=== PATIENT | male | born 1960 | race Caucasian/White ===

== ENCOUNTER 2022-06-03 09:11 | Day surgery (SDC) | payer BC, SELFPAY ==
[2022-06-03] MEDS: Tropicam./Phenyleph. (1/2.5%) 5 ML BTL OS ×3 (10:02→10:17)
[2022-06-03 10:10] VITALS: BP 144/98; PULSE 79; RESP 16; TEMP 36.4; O2SAT 97
--- NOTE | 2022-06-03 10:41 | W.ANESPRE ---
General Info Date of Service Date Performed: 06/03/22 Height: 5 ft 11 in Weight: 123 kg Body Mass Index (BMI): 37.8 Surgical Procedure: Operation Date: 06/03/22 11:25 Proposed Procedure Side Surgeon p Cataract Extraction with IOL Implant Left Claudio Cleveland MD Meds Allergies and Home Medications Allergies Allergy/AdvReac Type Severity Reaction Status Date / Time bee venom protein (honey bee) Allergy Intermediate Hives Verified 06/03/22 10:07 Home Medication Medication Instructions Recorded escitalopram oxalate 20 mg tablet 20 mg PO DAILY 05/30/22 hydrochlorothiazide 12.5 mg tablet 12.5 mg PO DAILY 05/30/22 lisinopril 20 mg tablet 20 mg PO DAILY 05/30/22 metformin 500 mg tablet 500 mg PO BID 05/30/22 Current Visit Medications: Current Medications Generic Name Dose Route Start Last Admin Trade Name Freq PRN Reason Stop Dose Admin Acetaminophen 1,000 mg 06/03/22 06:00 Acetaminophen 500 Mg Tab PO Q4H PRN PRN Miscellaneous Medication 0 ml 06/03/22 06:00 Prednisolone 1%, Moxifloxacin 0.5%, Nepafenac 0.1% 5ml Btl OS DIRECTED CHANA Miscellaneous Medication 0 ml 06/03/22 06:00 06/03/22 10:17 Tropicam./Phenyleph. (1/2.5%) 5 Ml Btl OS 1 drp DIRECTED CHANA Administration Tetracaine HCl 0 ml 06/03/22 06:00 Tetracaine 0.5% 4 Ml Btl OS DIRECTED CHANA PFSH Active Problems Active Problems: Problem Status Onset Code Nuclear sclerotic cataract of left eye H25.12 Cortical cataract of left eye H26.9 Posterior subcapsular age-related cataract of left eye H25.042 Medical History Medical History Depression Diabetes mellitus Hypertension Left sided sciatica Low back pain OTTO (obstructive sleep apnea) Surgical History Surgical History (Updated 06/03/22 @ 10:16 by Phyllis Covarrubias RN) H/O removal of cyst S/P hip replacement L Tobacco Smoking/Tobacco Use Status: Never Alcohol Alcohol Intake: never Substance Use Substance use type: does not use Vital Signs and Lab Results Vital Signs Most Recent Vital Signs in EMR: Most Recent Vital Signs Temp Pulse Resp BP Pulse Ox 36.4 C L 79 16 144/98 H 97 06/03/22 10:10 06/03/22 10:10 06/03/22 10:10 06/03/22 10:10 06/03/22 10:10 Point of Care Results Point of Care Results: Finger Stick Blood Glucose 134 06/03/22 10:20 Lab Results Blood Type / Crossmatch: No Data to Display Complete Blood Count: No Data to Display Complete Metabolic Panel: No Data to Display Liver Function Panel: No Data to Display Coagulation Panel: No Data to Display Cardiac Panel: No Data to Display Arterial Blood Gas: No Data to Display Venous Blood Gas: No Data to Display Pancreas Panel: No Data to Display Thyroid Panel: No Data to Display Infectious Disease: No Data to Display Blood Cultures: No Data to Display Toxicology Panel: No Data to Display Anesthesia Assessment and Plan Anesthesia History Personal History: No History of Anesthesia Complications Family History: No Family History of Anesthesia Complications Exercise Tolerance Exercise Tolerance: Metabolic Equivalents>4 Pertinent Negatives Pertinent Negatives: No Symptoms of GERD, No Major Cardiovascular Symptoms or Complaints and No Major Pulmonary Symptoms or Complaints Cardiac & Pulmonary Exam Cardiac Exam: Normal S1/S2 Heart Sounds Pulmonary Exam: Clear Bilateral Breath Sounds Implantable Cardiac Device Does patient have a Pacemaker or an ICD?: No Airway Exam Known Difficult Airway: No Mallampati Class: 2 Mouth Opening: Normal (> 3cm) Thyromental Distance: Greater than 3 cm Neck Range of Motion: Full ROM Neck Circumference: Thick Teeth Condition: Normal Dentition Airway Comments: CPAP nightly ASA Classification ASA Score: ASA 2 Emergency Case?: No NPO Status NPO Status: NPO Clears >2 hours, Solids >8 hours Anesthesia Plan Resuscitation Status: Full Code Anesthesia Technique: MAC Anesthesia Airway Planned: Natural Airway Monitors Used: Standard Monitors Preoperative Comments:: Plan for local.
[2022-06-03 11:08] VITALS: BMI 37.8
[2022-06-03] MEDS: Balanced Salt Soln.-PLUS 500 ML BAG (11:42)
[2022-06-03] MEDS: Tetracaine 0.5% 4 ML BTL OS (11:42)
[2022-06-03] MEDS: Duovisc Viscoelastic System EACH 1 EACH (11:44)
[2022-06-03] MEDS: Lidocaine 1% Pres-Free 5 ML VIAL (11:45)
[2022-06-03] MEDS: Lidocaine 2% Jelly 6 ML SYR (11:46)
[2022-06-03] MEDS: Povidone-Iodine Ophth 30 ML BTL (11:48)
--- NOTE | 2022-06-03 11:56 | W.PM.DSUDISC ---
Date of service: 06/03/22 Time of Service: 11:56 Discharge Plan Disposition Patient Disposition: Home Discharge Details Attending Provider: Claudio Cleveland Primary Care Provider: Haley Garcia Home Meds and New Rx's Prescriptions: No Action lisinopril 20 mg Tablet 20 mg PO DAILY hydrochlorothiazide 12.5 mg Tablet 12.5 mg PO DAILY metformin 500 mg Tablet 500 mg PO BID escitalopram oxalate 20 mg Tablet 20 mg PO DAILY Discharge Instructions Stand Alone Forms: Post-op Topical Cataract, Margo Gutierrez (DSU) Discharge Orders Discharge Orders: Discharge Order (Routine); Ordered 06/03/22 Ordered By: Claudio Cleveland DS: Diagnosis Discharge Diagnosis (1) Nuclear sclerotic cataract of left eye: Status: Resolved (2) Cortical cataract of left eye: Status: Resolved (3) Posterior subcapsular age-related cataract of left eye: Status: Resolved
[2022-06-03 11:57] VITALS: BP 135/90; PULSE 74; RESP 16; TEMP 36.3; O2SAT 96
--- NOTE | 2022-06-03 11:57 | ROE_ITS ---
Date of service: 06/03/22 Time of Service: 11:57 Operative Note Operative Note DATE OF PROCEDURE: 06/03/22 PRE-OP DIAGNOSIS: Nuclear/cortical/posterior subcapsular cataract, left eye POST-OP DIAGNOSIS: same PROCEDURE: Cataract extraction using phacoemulsification with intraocular lens implant, left eye SURGEON: Claudio Cleveland ANESTHESIA TYPE: Local By Surgeon and MAC Refer to Anesthesia Record PATHOLOGY: none sent COMPLICATIONS: None Patient was transported to: same day Patient's condition: stable Implants: Abilio and Abilio / [employer] Tecnis [id number] Indications: Progressive decreased vision due to cataract, left eye Procedure Description: CATARACT SURGERY OPERATIVE REPORT PREOPERATIVE DIAGNOSIS: 1. Nuclear/cortical/posterior subcapsular cataract, left eye POSTOPERATIVE DIAGNOSIS: Same OPERATION: 1. Cataract extraction using phacoemulsification with posterior chamber intraocular lens implant, left eye. IOL: IOL Director Funeral/Model: Abilio & Abilio / MELA Tecnis [id number] IOL Power: + 30.0 diopters IOL Serial Number: [id number] Optic Diameter: 6.0 mm Haptic/Overall Diameter: 13.0 mm PHACO INFO: Kwaku TUKZ Undergarmentsurion Vision System with OZil and Active Fluidics Cumulative Dispersed Energy (CDE): 4.53 seconds SURGEON: Claudio Cleveland MD, GERSON ANESTHESIA: Monitored A [facility] (MAC), with local sub-tenon's anesthetic infiltration COMPLICATIONS: None SPECIMENS: None INDICATIONS FOR PROCEDURE: The patient is a 61-year-old gentleman with history of high hyperopia who has developed a symptomatic nuclear/cortical/posterior subcapsular cataract in the left eye. The option of cataract surgery was offered to the patient and he wished to proceed. PROCEDURE: The correct surgical eye was identified and marked as the left eye and the pupil was dilated in the preoperative area using mydriatics and cycloplegics. The dilated pupil size was 6.5 mm. The patient elected to proceed without oral sedation. The patient was brought to the operating room where cardiopulmonary monitoring was instituted and surgical time-out was performed, confirming the correct operative eye and IOL power. Topical anesthesia was administered and ophthalmic povidone-iodine 5% was inst illed into the conjunctival fornices. Lidocaine gel was applied to the cornea and the kolby-ocular area was prepped with Betadine 10% solution and draped in the usual sterile fashion for intraocular surgery, including an aperture drape. A Tegaderm transparent film dressing was cut in half and used to cover the lashes and lid margins. Care was taken to sequester the lashes and lid margins under the Tegaderm dressing. A lid speculum was placed between the lids of the operative eye and the Kwaku LuxOR Revalia operating microscope was maneuvered into position. Elvis scissors were then used to make a conjunctival buttonhole approximately 6mm posterior to the limbus in the inferonasal quadrant. Blunt dissection was carried out to expose bare sclera, and a blunt-tipped sub-tenon?s anesthesia cannula was introduced and passed posteriorly along the globe where non- preserved plain lidocaine was injected into posterior sub-Tenon?s space. A sideport knife was used to make a paracentesis port superiorly/superiortemporally. Intraocular phenylephrine/lidocaine was injected int the anterior chamber.. The anterior chamber was filled with viscoelastic. A keratome knife was used to construct a 2-plane near-clear corneal tunnel extending 2.0mm into clear cornea temporally. A flap was raised on the anterior capsule and capsulorhexis forceps were used to complete a continuous curvilinear capsulorhexis of 5.5 mm. The capsule was noted to be quite thin. Balanced salt solution was then used to perform cortical cleaving hydrodissection and nuclear hydrodelineation until the lens could be freely rotated within the capsular bag. The lens nucleus was then disassembled and removed within the capsular bag and iris plane using phacoemulsification. Residual cortical material was removed using the 45-degree angled silicone I/A tip with 0.3mm port. The posterior capsule was carefully polished to remove as much residual lens epithelial cells as safely possible. The capsular bag was the n inflated and the anterior chamber deepened with viscoelastic. The lens implant described above was inserted into the capsular bag using the MELA [place] Injector. A Kuglen hook was used to dial the IOL into position. Residual viscoelastic was then removed first from posterior to the IOL, then from the anterior chamber using the I/A handpiece. The lens implant was noted to center nicely within the capsular bag. The incisions were stromally hydrated, and the anterior chamber was reformed using BSS. Then 0.5cc of moxifloxacin 1.0mg/ml were injected into the capsular bag and anterior chamber. The incisions were checked with a Weck spear and found to be secure. Several drops of ophthalmic povidone-iodine 5% were then applied to the eye followed by two drops of Imprimis combination prednisolone/moxifloxacin/nepafenac solution. The drapes were removed and a clear plastic protective eye shield was placed over the eye. The patient was then returned to Same Day Surgery in stable cond ition.
--- NOTE | 2022-06-03 13:18 | W.ANESPOSTOP ---
Postoperative Evaluation Date, Time and Location Date Performed: 06/03/22 Time Performed: 12:10 Patient Location: Day Surgery Unit Vital Signs Most Recent Imported Vital Signs: Most Recent Vital Signs Temp Pulse Resp BP Pulse Ox 36.3 C L 74 16 135/90 96 06/03/22 11:57 06/03/22 11:57 06/03/22 11:57 06/03/22 11:57 06/03/22 11:57 Pain Score Most Recent Pain Score: Most Recent Pain Score Pain Level 0 06/03/22 11:57 Assessment Mental Status: Awake (Alert & Oriented to Patient Baseline) Airway and Respiratory Function: Patent airway with normal (patient baseline) respiratory exam Cardiovascular Function: Hemodynamically Stable Hydration Status: Adequately Hydrated Nausea & Vomiting: No Nausea or Vomiting Pain: Pt. Denies Any Pain Peripheral Nerve Block: Patient did not receive a nerve block
== END 2022-06-03 12:12 | disposition home or self-care (01) ==
LOC: SUR 09:13
PROVIDERS: PCP Nurse Practitioner Family; Visit Provider Ophthalmology
PROC: (CPT 66984; principal; 2022-06-03 11:15)
DX: H25.12 Age-related nuclear cataract, left eye (principal); E11.9 Type 2 diabetes mellitus without complications
CPT/HCPCS: 66984; V2632

== ENCOUNTER 2022-06-17 10:22 | Day surgery (SDC) | payer BC, SELFPAY ==
--- NOTE | 2022-06-17 07:29 | W.PREOPHP ---
Assessment and Plan Assessment and plan (1) Cortical cataract of right eye: Status: Acute Assessment and plan: Assessment: Visually significant cataract of the right eye. Plan: Cataract extraction with lens implantation of the right eye. (2) Nuclear sclerotic cataract of right eye: Status: Acute Assessment and plan: Assessment: Visually significant cataract of the right eye. Plan: Cataract extraction with lens implantation of the right eye. (3) Posterior subcapsular age-related cataract, right eye: Status: Acute Assessment and plan: Assessment: Visually significant cataract of the right eye. Plan: Cataract extraction with lens implantation of the right eye. History of Present Illness History of Present Illness Chief Complaint: Progressive decreased vision, right eye Narrative: The patient is a 60-year-old gentleman with history of high hyperopia with short axial length who developed visually significant bilateral cortical/nuclear/posterior subcapsular cataracts in both eyes. He was significantly symptomatic and he desired cataract surgery and attempt to improve and maximize his vision. He has already undergone cataract surgery in the left eye on 06/03/2022 and is doing well postoperatively. He now presents for cataract surgery in the right eye. Review of Systems All systems reviewed & are unremarkable except as noted in HPI and below PFSH All Active Problems (Updated 06/17/22 @ 11:31 by Claudio Cleveland MD) Posterior subcapsular age-related cataract, right eye (Acute) Nuclear sclerotic cataract of right eye (Acute) Cortical cataract of right eye (Acute) Medical History Depression Diabetes mellitus Hypertension Left sided sciatica Low back pain OTTO (obstructive sleep apnea) Surgical History H/O removal of cyst S/P hip replacement L Social History Smoking/Tobacco Use Status: Never Smoking risk assessment performed?: Yes Alcohol Intake: never Substance use type: does not use Do you feel safe at home: Yes Do you feel safe in your relationship?: Yes Meds Allergies and Home Medications Allergies Allergy/AdvReac Type Severity Reaction Status Date / Time bee venom protein (honey bee) Allergy Intermediate Hives Verified 06/17/22 11:01 Home Medications Medication Instructions Recorded Confirmed Type escitalopram oxalate 20 mg tablet 20 mg PO DAILY 05/30/22 06/17/22 History hydrochlorothiazide 12.5 mg tablet 12.5 mg PO DAILY 05/30/22 06/17/22 History lisinopril 20 mg tablet 20 mg PO DAILY 05/30/22 06/17/22 History metformin 500 mg tablet 500 mg PO BID 05/30/22 06/17/22 History Exam Eyes Other: Most recent ocular examination shows corrected visual acuity of 20/30 in the right eye with high hyperopic correction of over +6.0 diopters. Visual acuity measures 28 2039 uncorrected in the left eye, pinhole into 2024. Left eye shows a well-positioned PCIOL with clear posterior capsule. In the right eye there is mild nuclear and cortical cataract with a moderate posterior subcapsular cataract. Funduscopic examination reveals disc cupping of 0.1 OU with normal vessels, macula, peripheral retina and vitreous. Resp Auscultation: clear to auscultation bilaterally Cardio Rate: regular rate Rhythm: regular rhythm
[2022-06-17 10:48] VITALS: BP 139/97; PULSE 81; RESP 16; TEMP 36; O2SAT 96
[2022-06-17] MEDS: Tropicam./Phenyleph. (1/2.5%) 5 ML BTL OD ×3 (11:03→11:15)
--- NOTE | 2022-06-17 11:21 | W.ANESPRE ---
General Info Date of Service Date Performed: 06/17/22 Height: 5 ft 11 in Weight: 123.3 kg Body Mass Index (BMI): 37.9 Surgical Procedure: Operation Date: 06/17/22 12:10 Proposed Procedure Side Surgeon p Cataract Extraction with IOL Implant Right Claudio Cleveland MD Meds Allergies and Home Medications Allergies Allergy/AdvReac Type Severity Reaction Status Date / Time bee venom protein (honey bee) Allergy Intermediate Hives Verified 06/17/22 11:01 Home Medication Medication Instructions Recorded escitalopram oxalate 20 mg tablet 20 mg PO DAILY 05/30/22 hydrochlorothiazide 12.5 mg tablet 12.5 mg PO DAILY 05/30/22 lisinopril 20 mg tablet 20 mg PO DAILY 05/30/22 metformin 500 mg tablet 500 mg PO BID 05/30/22 Current Visit Medications: Current Medications Generic Name Dose Route Start Last Admin Trade Name Freq PRN Reason Stop Dose Admin Acetaminophen 1,000 mg 06/17/22 06:00 Acetaminophen 500 Mg Tab PO Q4H PRN PRN Miscellaneous Medication 0 ml 06/17/22 06:00 Prednisolone 1%, Moxifloxacin 0.5%, Nepafenac 0.1% 5ml Btl OD DIRECTED CHANA Miscellaneous Medication 0 ml 06/17/22 06:00 06/17/22 11:15 Tropicam./Phenyleph. (1/2.5%) 5 Ml Btl OD 1 drp DIRECTED CHANA Administration Tetracaine HCl 0 ml 06/17/22 06:00 Tetracaine 0.5% 4 Ml Btl OD DIRECTED CHANA PFSH Active Problems Active Problems: Problem Status Onset Code Nuclear sclerotic cataract of left eye H25.12 Cortical cataract of left eye H26.9 Posterior subcapsular age-related cataract of left eye H25.042 Medical History Medical History Depression Diabetes mellitus Hypertension Left sided sciatica Low back pain OTTO (obstructive sleep apnea) Surgical History Surgical History H/O removal of cyst S/P hip replacement L Tobacco Smoking/Tobacco Use Status: Never Alcohol Alcohol Intake: never Substance Use Substance use type: does not use Vital Signs and Lab Results Vital Signs Most Recent Vital Signs in EMR: Most Recent Vital Signs Temp Pulse Resp BP Pulse Ox 36 C L 81 16 139/97 H 96 06/17/22 10:48 06/17/22 10:48 06/17/22 10:48 06/17/22 10:48 06/17/22 10:48 Lab Results Blood Type / Crossmatch: No Data to Display Complete Blood Count: No Data to Display Complete Metabolic Panel: No Data to Display Liver Function Panel: No Data to Display Coagulation Panel: No Data to Display Cardiac Panel: No Data to Display Arterial Blood Gas: No Data to Display Venous Blood Gas: No Data to Display Pancreas Panel: No Data to Display Thyroid Panel: No Data to Display Infectious Disease: No Data to Display Blood Cultures: No Data to Display Toxicology Panel: No Data to Display Anesthesia Assessment and Plan Anesthesia History Personal History: No History of Anesthesia Complications Family History: No Family History of Anesthesia Complications Exercise Tolerance Exercise Tolerance: Metabolic Equivalents>4 Pertinent Negatives Pertinent Negatives: No Symptoms of GERD Cardiac & Pulmonary Exam Cardiac Exam: Normal S1/S2 Heart Sounds Pulmonary Exam: Clear Bilateral Breath Sounds Implantable Cardiac Device Does patient have a Pacemaker or an ICD?: No Airway Exam Known Difficult Airway: No Mallampati Class: 2 Mouth Opening: Normal (> 3cm) Thyromental Distance: Greater than 3 cm Neck Range of Motion: Full ROM Neck Circumference: Thick Teeth Condition: Normal Dentition Airway Comments: CPAP nightly ASA Classification ASA Score: ASA 2 Emergency Case?: No NPO Status NPO Status: NPO Clears >2 hours, Solids >8 hours Anesthesia Plan Resuscitation Status: Full Code Anesthesia Technique: MAC Anesthesia Airway Planned: Natural Airway Monitors Used: Standard Monitors
[2022-06-17] MEDS: Tetracaine 0.5% 4 ML BTL OD (12:32)
[2022-06-17] MEDS: Lidocaine 1% Pres-Free 5 ML VIAL (12:32)
[2022-06-17] MEDS: Lidocaine 2% Jelly 6 ML SYR (12:33)
[2022-06-17] MEDS: Duovisc Viscoelastic System EACH 1 EACH (12:33)
[2022-06-17] MEDS: Balanced Salt Soln.-PLUS 500 ML BAG (12:33)
[2022-06-17] MEDS: Povidone-Iodine Ophth 30 ML BTL (12:34)
[2022-06-17 12:48] VITALS: BMI 37.9
[2022-06-17 12:56] VITALS: BP 134/90; PULSE 78; RESP 16; TEMP 36.9; O2SAT 96
--- NOTE | 2022-06-17 12:58 | W.PM.DSUDISC ---
Date of service: 06/17/22 Time of Service: 12:58 Discharge Plan Disposition Patient Disposition: Home Discharge Details Attending Provider: Claudio Cleveland Primary Care Provider: Haley Garcia Home Meds and New Rx's Prescriptions: No Action lisinopril 20 mg Tablet 20 mg PO DAILY hydrochlorothiazide 12.5 mg Tablet 12.5 mg PO DAILY metformin 500 mg Tablet 500 mg PO BID escitalopram oxalate 20 mg Tablet 20 mg PO DAILY Discharge Instructions Stand Alone Forms: Post-op Topical Cataract, Margo Gutierrez (DSU) Discharge Orders Discharge Orders: Discharge Order (Routine); Ordered 06/17/22 Ordered By: Claudio Cleveland DS: Diagnosis Discharge Diagnosis (1) Cortical cataract of right eye: Status: Resolved (2) Nuclear sclerotic cataract of right eye: Status: Resolved (3) Posterior subcapsular age-related cataract, right eye: Status: Resolved
--- NOTE | 2022-06-17 12:59 | ROE_ITS ---
Date of service: 06/17/22 Time of Service: 12:59 Operative Note Operative Note DATE OF PROCEDURE: 06/17/22 PRE-OP DIAGNOSIS: Nuclear/cortical/posterior subcapsular cataract, right eye POST-OP DIAGNOSIS: same PROCEDURE: Cataract extraction using phacoemulsification with intraocular lens implant, right eye SURGEON: Claudio Cleveland ANESTHESIA TYPE: Local By Surgeon and MAC Refer to Anesthesia Record ESTIMATED BLOOD LOSS: 0 PATHOLOGY: none sent COMPLICATIONS: None Patient was transported to: same day Patient's condition: stable Implants: Abilio & Abilio/MELA Tecnis [id number] Indications: Progressive visual loss due to cataract, right eye Procedure Description: CATARACT SURGERY OPERATIVE REPORT PREOPERATIVE DIAGNOSIS: 1. Nuclear/cortical/posterior subcapsular cataract, right eye POSTOPERATIVE DIAGNOSIS: Same OPERATION: 1. Cataract extraction using phacoemulsification with posterior chamber intraocular lens implant, right eye. IOL: IOL [employer] Assembler/Model: Abilio & Abilio / MELA Tecnis [id number] IOL Power: + 29.5 diopters IOL Serial Number: [id number] Optic Diameter: 6.0mm Haptic/Overall Diameter: 13.0mm PHACO INFO: Kwaku [employer]urion Vision System with OZil and Active Fluidics Cumulative Dispersed Energy (CDE): 5.86 seconds SURGEON: Claudio Cleveland MD, GERSON ANESTHESIA: Monitored Anesthesia Care (MAC), with local sub-tenon's anesthetic infiltration COMPLICATIONS: None SPECIMENS: None INDICATIONS FOR PROCEDURE: The patient is a 61-year-old gentleman with history of high hyperopia who has developed symptomatic bilateral nuclear/cortical/posterior subcapsular cataract. He has already undergone cataract surgery in the left eye and is doing well postoperatively. He now presents for cataract surgery in the right eye. PROCEDURE: The correct surgical eye was identified and marked as the right eye and the pupil was dilated in the preoperative area using mydriatics and cycloplegics. The dilated pupil size was 7.0 mm. The patient elected to proceed without oral sedation. The patient was brought to the operating room where cardiopulmonary monitoring was instituted and surgical time-out was performed, confirming the correct operative eye and IOL power. Topical anesthesia was administered and ophthalmic povidone-iodine 5% was instilled into the conjunctival fornices. Lidocaine gel was applied to the cornea and the kolby-ocular area was prepped with Betadine 10% solution and draped in the usual sterile fashion for intraocular surgery, including an aperture drape. A Tegaderm transparent film dressing was cut in half and used to cover the lashes and lid margins. Care was taken to sequester the lashes and lid margins under the Tegaderm dressing. A lid speculum was placed between the lids of the operative eye and the Kwaku LuxOR [place] operating microscope was maneuvered into position. Elvis scissors were then used to make a conjunctival buttonhole approximately 6mm posterior to the limbus in the inferonasal quadrant. Blunt dissection was carried out to expose bare sclera, and a blunt-tipped sub-tenon?s anesthesia cannula was introduced and passed posteriorly along the globe where non- preserved plain lidocaine was injected into posterior sub-Tenon?s space. A sideport knife was used to make a paracentesis port inferotemporally. Intraocular phenylephrine/lidocaine was injected into the anterior chamber. The anterior chamber was filled with viscoelastic. A keratome knife was used to construct a 2-plane near-clear corneal tunnel extending 2.0mm into clear cornea superiortemporally. A flap was raised on the anterior capsule and capsulorhexis forceps were used to complete a continuous curvilinear capsulorhexis of 5.5 mm. Balanced salt solution was then used to perform cortical cleaving hydrodissection and nuclear hydrodelineation until the lens could be freely rotated within the capsular bag. The lens nucleus was then disassembled and removed within the capsular bag and iris plane using phacoemulsification. Residual cortical material was removed using the I/A handpiece. The posterior capsule was carefully polished to remove as much residual lens epithelial cells as safely possible. The capsular bag was then inflated and the anterior chamber deepened with viscoelastic. The lens implant described above was inserted into the capsular bag using the MELA [place] Injector. A Kuglen hook was used to dial the IOL into position. Residual viscoelastic was then removed first from posterior to the IOL, then from the anterior chamber using the I/A handpiece. The lens implant was noted to center nicely within the capsular bag. The incisions were stromally hydrated, and the anterior chamber was reformed using BSS. Then 0.5cc of moxifloxacin 1.0mg/ml were injected into the capsular bag and anterior chamber. The incisions were checked with a Weck spear and found to be secure. Several drops of ophthalmic povidone-iodine 5% were then applied to the eye followed by two drops of Imprimis combination prednisolone/moxifloxacin/nepafenac solution. The drapes were removed and a clear plastic protective eye shield was placed over the eye. The patient was then returned to Same Day Surgery in stable condition.
--- NOTE | 2022-06-17 13:11 | W.ANESPOSTOP ---
Postoperative Evaluation Date, Time and Location Date Performed: 06/17/22 Time Performed: 12:56 Patient Location: Day Surgery Unit Vital Signs Most Recent Imported Vital Signs: Most Recent Vital Signs Temp Pulse Resp BP Pulse Ox 36.9 C 78 16 134/90 96 06/17/22 12:56 06/17/22 12:56 06/17/22 12:56 06/17/22 12:56 06/17/22 12:56 Pain Score Most Recent Pain Score: Most Recent Pain Score Pain Level 0 06/17/22 12:56 Assessment Mental Status: Awake (Alert & Oriented to Patient Baseline) Airway and Respiratory Function: Patent airway with normal (patient baseline) respiratory exam Cardiovascular Function: Hemodynamically Stable Hydration Status: Adequately Hydrated Nausea & Vomiting: No Nausea or Vomiting Pain: Pt. Denies Any Pain Peripheral Nerve Block: Other (Local by Dr. Cleveland)
== END 2022-06-17 13:19 | disposition home or self-care (01) ==
LOC: SUR 10:22
PROVIDERS: PCP Nurse Practitioner Family; Visit Provider Ophthalmology
PROC: (CPT 66984; principal; 2022-06-17 12:00)
DX: H25.041 Posterior subcapsular polar age-related cataract, right eye (principal); E11.9 Type 2 diabetes mellitus without complications; I10 Essential (primary) hypertension
CPT/HCPCS: 66984; V2632